=== PATIENT | male | born 1965 | race Asian ===

== ENCOUNTER → 2017-01-17 | Outpatient (CLI) | payer MEDICAID | LOC: COL.RAD 09:45 | DX: B18.2 Chronic viral hepatitis C (principal); R11.0 Nausea; R12 Heartburn; K21.9 Gastro-esophageal reflux disease without esophagitis; R11.10 Vomiting, unspecified ==

== ENCOUNTER 2017-01-19 13:34 | Day surgery (SDC) | payer MEDICAID | END 2017-01-19 13:50 | disposition home or self-care (01) | LOC: SDCO 13:34 | DX: R11.2 Nausea with vomiting, unspecified (principal); R12 Heartburn; K21.9 Gastro-esophageal reflux disease without esophagitis; Z53.09 Procedure and treatment not carried out because of other contraindication ==